=== PATIENT | female | born 1950 | race Caucasian/White ===

== ENCOUNTER 2019-07-15 22:31 | Emergency (ER) | payer OTHER ==
[~2019-07-15] VITALS: Ht 149.9 cm; Wt 55.3 kg
[2019-07-15] MEDS ORDERED: INTERMEZZO3.5 MG SUBLING (22:42)
[2019-07-15] MEDS ORDERED: ASPERCREME1 EACH TOP (22:42)
[2019-07-15] MEDS ORDERED: TOPAMAX100 MG PO (22:42)
[2019-07-15] MEDS ORDERED: EFFEXOR XR150 MG PO (22:43)
[2019-07-15] MEDS ORDERED: NORTRIPTYLINE H10 M1 (22:43)
[2019-07-15] MEDS ORDERED: LISINOPRIL2.5 MG PO (22:43)
[2019-07-15] MEDS ORDERED: ONDANSETRON HCL4 M2 PO (22:44)
[2019-07-15] MEDS ORDERED: OMEPRAZOLE 20 M20 M1 PO (22:44)
[2019-07-15] MEDS ORDERED: RANITIDINE HCL150 M1 PO (22:44)
[2019-07-15] MEDS ORDERED: RELPAX40 MG PO (22:45)
[2019-07-15 22:55] LABS: ABSOLUTE BASOPHILS 0.1 thou/uL (0.0-0.2); ABSOLUTE EOSINOPHILS 0.1 thou/uL (0.0-0.7); ABSOLUTE LYMPHOCYTES 2.5 thou/uL (0.8-5.3); ABSOLUTE MONOCYTES 0.5 thou/uL (0.0-1.2); ABSOLUTE NEUTROPHILS 3.8 thou/uL (1.6-8.1); BASOPHILS 0.9 %; EOSINOPHILS 1.3 %; HEMATOCRIT 36.1 % (37.0-47.0); HEMOGLOBIN 12.5 gm/dL (12.0-15.0); MCH 30.7 pg (26.0-34.0); MCHC 34.6 g/dL (28.0-37.0); MCV 88.6 fL (80.0-100.0); MONOCYTES 7.4 %; MPV 8.5 fl. (7.2-11.1); NUCLEATED RBCS 0 /100WBC; PLATELET COUNT* 197 thou/uL (150-400); POLYS 54.4 %; RBC 4.07 mil/uL (4.20-5.00); RDW-CV 13.4 % (10.5-14.5); WBC 6.9 thou/uL (4.0-11.0)
[2019-07-15 23:03] LABS: CALCIUM 9.2 mg/dL (8.5-10.1); CREATININE 0.8 mg/dL (0.6-1.3); POTASSIUM 3.6 mmol/L (3.5-5.1)
[2019-07-15 23:08] LABS: ALBUMIN 4.1 g/dL (3.4-5.0); TOTAL BILIRUBIN 0.2 mg/dL (<0.1-1.0); TOTAL PROTEIN 7.8 g/dL (6.4-8.2)
[2019-07-15 23:18] LABS: SALICYLATE < 2.8 mg/dL (2.8-20.0)
[2019-07-15 23:19] LABS: ACETAMINOPHEN < 2 ug/mL (10-30); ALCOHOL < 10 mg/dL (<10)
[2019-07-15 23:40] LABS: URINE BILIRUBIN NEGATIVE (Negative); URINE BLOOD NEGATIVE (Negative); URINE CLARITY CLEAR; URINE COLOR YELLOW; URINE GLUCOSE-RANDOM NEGATIVE (Negative); URINE KETONES NEGATIVE (Negative); URINE LEUKOCYTES-REFLEX 1+ (Negative); URINE NITRITE-REFLEX NEGATIVE (Negative); URINE PROTEIN NEGATIVE (Negative); URINE SPECIFIC GRAVITY <= 1.005 (1.005-1.030); URINE UROBILINOGEN 0.2 E.U./dl (0.2-1.0)
[2019-07-15 23:48] LABS: AMP/METHAMP Negative (Negative); BARBITURATES Negative (Negative); BENZODIAZEPINES Negative (Negative); COCAINE Negative (Negative); METHADONE Negative (Negative); OPIATES Negative (Negative); PCP Negative (Negative); THC POSITIVE (Negative)
[2019-07-15 23:52] LABS: SQUAMOUS 0-3 Few /LPF (0-3); WBC CLUMPS Moderate (None Seen)
[2019-07-15 23:53] LABS: BACTERIA-REFLEX >30 Many /HPF (None Seen); CASTS None Seen /LPF (None Seen); CELLULAR CASTS 0-3 Few /LPF (None Seen); CRYSTALS None Seen /LPF (None Seen); MUCUS 4-6 Moderate strn/LPF (None Seen); URINE RBC 3-10 Few /HPF (0-2)
[2019-07-15 23:57] VITALS: BP 140/75
--- NOTE | 2019-07-18 10:42 | EKG ---
[place] [address] ELECTROCARDIOGRAM REPORT Name: DEREK FRAIRE Room: [facility]#: [id number] Admission: 07/15/19 Attend Phys: Discharge: 07/15/19 Date of : 54 Report #: [id number] THIS REPORT FOR: //name// [facility] ED Test Date: 2019-07-15 Test Time: 22:37:05 Pat Name: DEREK FRAIRE Department: Room: Gender: F Dye [employer] Tender: FELIPE : 1950 Requested By: Seven Castaneda Order Number: [id number] MD: Marin Jacobson Measurements Intervals [place] Rate: 90 P: 56 [place]: 161 QRS: 7 QRSD: 96 T: 34 QT: 379 QTc: 464 Interpretive Statements Sinus rhythm Baseline wander in lead(s) V3 No previous ECG available for comparison Electronically Signed On 07-18-2019 10:42:22 APPLICATIONS ENGINEER by Marin Jacobson [email or web address] <ELECTRONICALLY SIGNED> By: Marin Jacobson MD, [facility] 07/18/19 [id number] Marin Jacobson MD, FACC /EPI
== END 2019-07-15 23:59 | disposition home or self-care (01) ==
LOC: M.ERS 22:31
PROVIDERS: Family Medicine
DX: F41.0 Panic disorder [episodic paroxysmal anxiety] (principal); R41.82 Altered mental status, unspecified; F32.9 Major depressive disorder, single episode, unspecified; I10 Essential (primary) hypertension; R55 Syncope and collapse; R51 Headache; Z88.8 Allergy status to other drugs, medicaments and biological substances

== ENCOUNTER 2019-09-24 02:31 | Emergency (ER) | payer OTHER ==
[~2019-09-24] VITALS: Ht 124.5 cm; Wt 51.8 kg
[~2019-09-24 02:31] MED LIST: ASPERCREME1 EACH TOP; EFFEXOR XR150 MG PO; INTERMEZZO3.5 MG PO; LISINOPRIL2.5 MG PO; NORTRIPTYLINE H10 M1; OMEPRAZOLE 20 M20 M1 PO; ONDANSETRON HCL4 M2 PO; RANITIDINE HCL150 M1 PO; RELPAX40 MG PO; TOPAMAX100 MG PO
[2019-09-24] MEDS ORDERED: TOPAMAX 25 MG T25 M1 PO (02:49)
[2019-09-24 03:28] LABS: ABSOLUTE BASOPHILS 0.1 thou/uL (0.0-0.2); ABSOLUTE EOSINOPHILS 0.2 thou/uL (0.0-0.7); ABSOLUTE LYMPHOCYTES 2.8 thou/uL (0.8-5.3); ABSOLUTE MONOCYTES 0.5 thou/uL (0.0-1.2); ABSOLUTE NEUTROPHILS 4.2 thou/uL (1.6-8.1); BASOPHILS 1.2 %; EOSINOPHILS 2.3 %; HEMATOCRIT 34.1 % (37.0-47.0); HEMOGLOBIN 11.7 gm/dL (12.0-15.0); LYMPHOCYTES 36.1 %; MCH 30.1 pg (26.0-34.0); MCHC 34.2 g/dL (28.0-37.0); MONOCYTES 6.7 %; MPV 7.8 fl. (7.2-11.1); NUCLEATED RBCS 0 /100WBC; PLATELET COUNT* 218 thou/uL (150-400); POLYS 53.7 %; RBC 3.88 mil/uL (4.20-5.00); RDW-CV 13.7 % (10.5-14.5); WBC 7.8 thou/uL (4.0-11.0)
[2019-09-24 03:36] LABS: CALCIUM 8.7 mg/dL (8.5-10.1); CREATININE 1.1 mg/dL (0.6-1.3); POTASSIUM 3.9 mmol/L (3.5-5.1)
[2019-09-24 03:40] LABS: ALBUMIN 3.8 g/dL (3.4-5.0); TOTAL BILIRUBIN 0.3 mg/dL (<0.1-1.0); TOTAL PROTEIN 7.1 g/dL (6.4-8.2)
[2019-09-24 03:53] LABS: SALICYLATE < 2.8 mg/dL (2.8-20.0)
[2019-09-24 03:55] LABS: ACETAMINOPHEN < 2 ug/mL (10-30); ALCOHOL < 10 mg/dL (<10)
[2019-09-24 04:55] LABS: URINE BILIRUBIN NEGATIVE (Negative); URINE BLOOD NEGATIVE (Negative); URINE CLARITY CLEAR; URINE COLOR YELLOW; URINE GLUCOSE-RANDOM NEGATIVE (Negative); URINE KETONES NEGATIVE (Negative); URINE LEUKOCYTES-REFLEX 1+ (Negative); URINE NITRITE-REFLEX NEGATIVE (Negative); URINE PROTEIN NEGATIVE (Negative); URINE UROBILINOGEN 0.2 E.U./dl (0.2-1.0)
[2019-09-24 05:03] LABS: AMP/METHAMP Negative (Negative); BARBITURATES Negative (Negative); BENZODIAZEPINES Negative (Negative); COCAINE Negative (Negative); METHADONE Negative (Negative); OPIATES Negative (Negative); PCP Negative (Negative); THC POSITIVE (Negative)
[2019-09-24 05:21] LABS: BACTERIA-REFLEX >30 Many /HPF (None Seen); CASTS None Seen /LPF (None Seen); CRYSTALS None Seen /LPF (None Seen); MUCUS 0-3 Light strn/LPF (None Seen); SQUAMOUS 0-3 Few /LPF (0-3); URINE RBC 3-10 Few /HPF (0-2); URINE WBC-REFLEX >25 Many /HPF (0-5); WBC CLUMPS Few (None Seen)
[2019-09-24] MEDS ORDERED: KEFLEX500 M1 PO (12:25)
[2019-09-24 12:30] VITALS: BP 141/87
== END 2019-09-24 12:31 | disposition home or self-care (01) ==
LOC: M.ERS 02:31
PROVIDERS: Emergency Medicine
DX: R45.851 Suicidal ideations (principal); N39.0 Urinary tract infection, site not specified; I10 Essential (primary) hypertension; F32.9 Major depressive disorder, single episode, unspecified; Z88.5 Allergy status to narcotic agent